=== PATIENT | female | born 1975 | race Caucasian/White ===

== ENCOUNTER 2020-12-13 13:03 | Emergency (ER) | payer OTHER ==
[~2020-12-13] VITALS: Ht 177.8 cm; Wt 90.4 kg
[~2020-12-13 13:03] MED LIST: ALPR2TAB3 PO; CLON0.2T PO; IMIT50TA PO; LEXA1TAB PO; LOPR1TAB6 PO; METO50TA7 PO; PANT40TA29 PO; RANI150T PO; TOPI25CA3 PO; TRAM50TA2 PO; TRAZ-257 PO; ULTR50TA8 PO; VALI5TAB PO
[2020-12-13] MEDS ORDERED: NS 1,000 ML IV ONE (14:50)
[2020-12-13] MEDS ORDERED: KETOROLAC 30 MG/ML 1ML VIAL IV ONE (14:50)
[2020-12-13] MEDS ORDERED: ONDANSETRON 4MG/2ML VIAL IV ONE (14:50)
--- NOTE | 2020-12-13 15:02 | REP ---
INDICATION: Syncope COMPARISON: Correlation with MRI dated 04/11/2013 TECHNIQUE: Axial noncontrast images from the skull base to the vertex with coronal reformations. This CT examination was performed using the following dose reduction techniques: Automated exposure control, adjustment of mA and/or kv according to the patient's size, and use of iterative reconstruction technique. FINDINGS: The ventricles, sulci, and cisterns are normal in position and appearance. Max-white differentiation is maintained. No acute intracranial hemorrhage, mass/mass effect, pathology or trauma/injury. No evidence for acute infarction. No extra-axial fluid collection. Calvarium is intact. Paranasal sinuses and mastoid air cells are clear. IMPRESSION: Normal noncontrast head CT. No evidence for acute intracranial pathology or trauma/injury. <Electronically signed by Kavon Bush > 12/13/20 [id number]
[2020-12-13 15:28] LABS: BASO % 0.3 % (0.0-1.0); EOS # 0.3 10^3/uL (0.0-0.5); EOS % 5.3 % (0.0-3.0); HEMATOCRIT 31.4 % (36.0-47.0); LYMPH # 2.7 10^3/uL (1.5-5.0); LYMPH % 42.7 % (24.0-44.0); MEAN CORPUSCULAR HEMOGLOBIN 30.1 pg (27.0-33.0); MEAN CORPUSCULAR HGB CONC 31.8 g/dl (32.0-36.5); MEAN CORPUSCULAR VOLUME 94.6 fl (80.0-96.0); MONO # 0.4 10^3/uL (0.0-0.8); MONO % 6.4 % (2.0-8.0); NEUTROPHILS # 2.8 10^3/uL (1.5-8.5); NEUTROPHILS % 45.1 % (36.0-66.0); RED BLOOD COUNT 3.32 10^6/uL (4.00-5.40); WHITE BLOOD COUNT 6.3 10^3/uL (4.0-10.0)
[2020-12-13 15:43] LABS: INR 1.41; PARTIAL THROMBOPLASTIN TIME 39.3 SECONDS (24.2-38.5); PROTHROMBIN TIME 17.6 SECONDS (12.5-14.3)
[2020-12-13 15:45] LABS: D-DIMER QUANT 773.19 ng/ml (<500)
[2020-12-13 15:48] LABS: PLATELET COUNT, AUTOMATED 71 10^3/uL (150-450)
[2020-12-13 15:53] LABS: ERYTHROCYTE SEDIMENTATION RATE 45 mm/hr (0-20)
[2020-12-13 16:00] LABS: BLOOD UREA NITROGEN 15 MG/DL (7-18); CARBON DIOXIDE LEVEL 22 MEQ/L (21-32); CHLORIDE LEVEL 111 MEQ/L (98-107); CK-MB VALUE MASS < 1.0 NG/ML (<3.6); CPK CREATINE PHOSPHOKINASE 47 U/L (26-192); CREATININE FOR GFR 1.05 MG/DL (0.55-1.30); FREE T4 1.32 NG/DL (0.76-1.46); GLOMERULAR FILTRATION RATE > 60.0 (>58); GLUCOSE, FASTING 73 MG/DL (70-100); MB/CK RELATIVE INDEX 2.13 (< OR =4); POTASSIUM SERUM 4.1 MEQ/L (3.5-5.1); SODIUM LEVEL 140 MEQ/L (136-145); TROPONIN I < 0.02 NG/ML (< 0.10)
[2020-12-13] MEDS ORDERED: ISOVUE-370 76% 100ML VIAL As Ordered ONE (16:29)
--- NOTE | 2020-12-13 16:57 | REP ---
INDICATION: sob/symptomatic bradycardia COMPARISON: None. TECHNIQUE: Axial contrast enhanced images from the thoracic inlet to the upper abdomen using pulmonary embolus technique with multiplanar re-formations. 75 ml Isovue 370 intravenous contrast material administered without complication. This CT examination was performed using the following dose reduction techniques: Automated exposure control, adjustment of mA and/or kv according to the patient's size, and use of iterative reconstruction technique. FINDINGS: Satisfactory enhancement of the pulmonary vasculature is achieved and no filling defects are identified to suggest pulmonary embolus. Further evaluation of the mediastinum demonstrates normal thoracic aorta, heart and pericardium. The bilateral lung gordon are well aerated and clear without consolidation pleural effusion or pneumothorax. Tracheobronchial tree is patent. No nodule or mass lesion is identified. No adenopathy noted. Surrounding musculoskeletal structures intact IMPRESSION: No evidence for pulmonary embolus. No acute mediastinal or pleural parenchymal process. <Electronically signed by Kavon Bush > 12/13/20 [id number]
[2020-12-13 18:57] LABS: ALBUMIN 2.8 GM/DL (3.2-5.2); BILIRUBIN,DIRECT 0.8 MG/DL (0.0-0.2); BILIRUBIN,TOTAL 1.8 MG/DL (0.2-1.0)
[2020-12-13 19:11] VITALS: BP 135/65
[2020-12-13 22:03] LABS: ETHYL ALCOHOL (ETHANOL) 0.004 % (0.000-0.010)
--- NOTE | 2020-12-14 16:44 | ECGEPIP ---
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
== END 2020-12-13 20:10 | disposition left against medical advice (07) ==
LOC: M ED 13:03
DX: R51.9 Headache, unspecified (principal); R00.1 Bradycardia, unspecified; Z53.21 Procedure and treatment not carried out due to patient leaving prior to being seen by health care provider; G43.909 Migraine, unspecified, not intractable, without status migrainosus; M54.9 Dorsalgia, unspecified; K21.9 Gastro-esophageal reflux disease without esophagitis; F41.9 Anxiety disorder, unspecified; F32.9 Major depressive disorder, single episode, unspecified; F17.200 Nicotine dependence, unspecified, uncomplicated; F12.90 Cannabis use, unspecified, uncomplicated; Z88.1 Allergy status to other antibiotic agents
CPT/HCPCS: 70450; 71275; 80048; 80076; 82077; 82140; 82550; 82553; 83690; 83735; 84439; 84443; 85025; 85049; 85055; 85379; 85610; 85652; 85730; 86140; 93005; 96361; 96374; 96375; 99284; J1885; J2405; Q9967

== ENCOUNTER → 2021-02-19 | Outpatient (CLI) | payer OTHER ==
--- NOTE | 2021-02-19 13:06 | REP ---
INDICATION: EDEMA. COMPARISON: None. TECHNIQUE: Multiple ultrasonographic images of the deep venous structures of the bilateral lower extremity were obtained from the inguinal ligament to the ankle. Venous compression techniques, color doppler imaging, and augmentation techniques were also obtained where appropriate. As per the ACR guidelines the anterior tibial vein can not be effectively evaluated. Only compression techniques in the calf on the peroneal and posterior tibial veins was attempted/performed. FINDINGS: There is no abnormal echogenic material seen within any of the visualized deep venous structures that would suggest acute thrombosis. Coaptation is unremarkable throughout. Doppler interrogation shows an expected response to respiratory variability and augmentation in the thigh. Compression techniques in the calf were unobtainable. The color flow images show what appears to be a normal vascular pattern throughout the thigh. IMPRESSION: There is no ultrasonographic evidence of deep venous thrombosis involving any of the visualized deep venous structures of the bilateral lower extremity as described above. Due to technical parameters calf vein DVT can not be ruled out. <Electronically signed by Aly Gracia > 02/19/21 [id number]
== END ==
LOC: M RAD 11:37
PROVIDERS: ATTEND Nurse Practitioner Family
DX: R60.0 Localized edema (principal)

== ENCOUNTER → 2021-03-12 | Outpatient (CLI) | payer OTHER ==
--- NOTE | 2021-03-12 14:51 | REPMRS ---
Patient History The patient states she has not had a clinical breast exam in over a year. Family history of unknown cancer in father. Baseline @ 45 No breast complaints today Patient signed the MRS sheet 1st covid vaccine 01/05/21-left arm-Pfizer 2nd covid vaccine 01/26/21-left arm Patient Identification Verified Patient denied Digital Woman Screen Mammo: March 12, 2021 - Exam #: [id number] Bilateral CC and MLO view(s) were taken. Technologist: Padmini Mora, Technologist No prior studies available for comparison. FINDINGS: The breast tissue is heterogeneously dense. This may lower the sensitivity of mammography. The Volpara volumetric breast density category is: C. There is a 13 mm well-circumscribed mass in the superomedial quadrant of the right breast. This merits further evaluation. There is no other evidence of dominant mass, architectural distortion, or grouped microcalcification typical of malignancy. 3-D tomosynthesis shows no additional findings. Assessment: BI-RADS/ACR category 0 mammogram, Incomplete. Need additonal imaging evaluation and/or prior mammograms for comparison. Recommendation Ultrasound and special view mammogram of the right breast. This patient's [facility] Lifetime Breast Cancer RIsk is estimated at 9.6 %. This mammogram was interpreted with the aid of an FDA-approved computer-aided dectection system. Electronically Signed By: Shaw Salinas MD 03/12/21 [id number]
== END ==
LOC: M WHC 13:33
PROVIDERS: ATTEND Nurse Practitioner Family
DX: Z12.31 Encounter for screening mammogram for malignant neoplasm of breast (principal); Z80.9 Family history of malignant neoplasm, unspecified; N63.10 Unspecified lump in the right breast, unspecified quadrant

== ENCOUNTER → 2021-03-28 | Outpatient (CLI) | payer OTHER ==
--- NOTE | 2021-03-28 19:30 | ECHO ---
ECHOCARDIOGRAM DATE OF PROCEDURE: 03/28/2021 Age: 45 years Gender: Female Height: 70 inches Weight: 187 pounds Body Surface Area: 2.03 m2. Outpatient REFERRING PHYSICIAN: Val Wakefield INDICATION: Cardiac murmur. MEASUREMENTS: 2D Measurements: RV 3.9 cm LV 5.4 cm Septum 0.9 cm Posterior wall 0.9 cm Aortic Root 3.1 cm LA 3.7 cm LVEF 75% Doppler Measurements: AV 2.61 m/s LVOT 1.16 m/s Mean gradient 13 mmHg Dimensionless index 0.57 MV-E 104, A 95, E/A ratio 1.1 Early mitral deceleration time 280 ms E prime medial 9, A prime medial 10, E prime lateral 12.3 Average E/E prime ratio 9.8/PCWP - 14 mmHg PV 0.96 m/s Pulmonary artery acceleration time 165 ms RVSP 23 mmHg IVC 2.0 cm COMMENTS: Normal sinus rhythm without intraventricular conduction disturbance. M-Mode and Two Dimensional Echocardiography was performed with pulse, continuous wave, color flow, and tissue Doppler studies. Normal left ventricular size, wall thickness, and hyperkinetic wall motion. Normal left atrial size and Doppler assessment of LV diastolic dysfunction and estimated mean left atrial pressure. Normal right heart chamber sizes, wall motion, and estimated pulmonary hypertension. Normal inferior vena cava (IVC) size and collapse against an elevated central venous pressure. Normal aortic dimensions. Normal-appearing aortic valve and aortic valve function. Normal-appearing mitral valve with adequate leaflet excursion and no posterior systolic buckling. No more than very mild mitral insufficiency (physiologic). Normal-appearing tricuspid valve with mild insufficiency. No apparent evidence of intracardiac shunt. No apparent intracardiac mass or pericardial effusion. I suspect this woman's murmur is a physiologic or flow related phenomenon. [facility]
== END ==
LOC: M CARPUL 11:58
PROVIDERS: ATTEND Pediatrics
DX: R01.1 Cardiac murmur, unspecified (principal)

== ENCOUNTER → 2021-12-11 | Outpatient (CLI) | payer OTHER ==
[~2021-12-11] MED LIST changes: -TOPI25CA3 PO; +TOPI25CA5 PO
== END ==
LOC: M WHC 12:37
PROVIDERS: ATTEND Family Medicine
DX: M79.89 Other specified soft tissue disorders (principal); M79.661 Pain in right lower leg

== ENCOUNTER → 2021-12-11 | Outpatient (CLI) | payer OTHER ==
[2021-12-11 10:21] LABS: HEMATOCRIT 30.4 % (36.0-47.0); HEMOGLOBIN 8.7 g/dl (12.0-15.5); MEAN CORPUSCULAR HEMOGLOBIN 22.8 pg (27.0-33.0); MEAN CORPUSCULAR HGB CONC 28.6 g/dl (32.0-36.5); MEAN CORPUSCULAR VOLUME 79.8 fl (80.0-96.0); PLATELET COUNT, AUTOMATED 116 10^3/uL (150-450); RED BLOOD COUNT 3.81 10^6/uL (4.00-5.40); WHITE BLOOD COUNT 5.1 10^3/uL (4.0-10.0)
[2021-12-11 11:10] LABS: ALBUMIN 3.1 GM/DL (3.2-5.2); ALT/SGPT 20 U/L (12-78); BILIRUBIN,TOTAL 1.5 MG/DL (0.2-1.0); BLOOD UREA NITROGEN 10 MG/DL (7-18); CALCIUM LEVEL 9.3 MG/DL (8.5-10.1); CARBON DIOXIDE LEVEL 25 MEQ/L (21-32); CHLORIDE LEVEL 108 MEQ/L (98-107); CHOLESTEROL LEVEL 134 MG/DL (<200); CHOLESTEROL RISK RATIO 1.942 (<5); CREATININE FOR GFR 1.01 MG/DL (0.55-1.30); GLOMERULAR FILTRATION RATE > 60.0 (>58); GLUCOSE, FASTING 101 MG/DL (70-100); HDL CHOLESTEROL 69 MG/DL (>40); LDL CHOLESTEROL 54 MG/DL (<100); NON-HDL-C 65 MG/DL; SODIUM LEVEL 140 MEQ/L (136-145); TOTAL PROTEIN 7.3 GM/DL (6.4-8.2); TRIGLYCERIDES LEVEL 53 MG/DL (<150)
[2021-12-11 11:14] LABS: TOTAL 25(OH) VITAMIN D 22.8 NG/ML (30.0-100.0)
== END ==
LOC: M LAB 09:33
PROVIDERS: ATTEND Family Medicine
DX: I10 Essential (primary) hypertension (principal); R53.83 Other fatigue; E03.9 Hypothyroidism, unspecified

== ENCOUNTER 2022-03-26 19:40 | Emergency (ER) | payer OTHER ==
[~2022-03-26] VITALS: Ht 177.8 cm; Wt 86.4 kg
[2022-03-26 19:49] VITALS: BP 130/79
[2022-03-26] MEDS ORDERED: OMEP-173 (19:50)
== END 2022-03-26 23:32 | disposition left against medical advice (07) ==
LOC: M ED 19:40
DX: Z53.21 Procedure and treatment not carried out due to patient leaving prior to being seen by health care provider (principal)

== ENCOUNTER 2022-04-09 12:43 | Emergency (ER) | payer OTHER ==
[~2022-04-09] VITALS: Ht 177.8 cm; Wt 86.4 kg
[~2022-04-09 12:43] MED LIST changes: +OMEP-173 PO
[2022-04-09 14:06] LABS: BASO # 0.1 10^3/uL (0.0-0.2); BASO % 1.4 % (0.0-1.0); EOS # 0.1 10^3/uL (0.0-0.5); EOS % 1.9 % (0.0-3.0); HEMATOCRIT 31.7 % (36.0-47.0); HEMOGLOBIN 9.5 g/dl (12.0-15.5); LYMPH # 1.7 10^3/uL (1.5-5.0); LYMPH % 40.7 % (24.0-44.0); MEAN CORPUSCULAR HEMOGLOBIN 29.3 pg (27.0-33.0); MEAN CORPUSCULAR VOLUME 97.8 fl (80.0-96.0); MONO # 0.3 10^3/uL (0.0-0.8); MONO % 7.2 % (2.0-8.0); NEUTROPHILS # 1.9 10^3/uL (1.5-8.5); NEUTROPHILS % 46.9 % (36.0-66.0); RED BLOOD COUNT 3.24 10^6/uL (4.00-5.40); WHITE BLOOD COUNT 4.2 10^3/uL (4.0-10.0)
[2022-04-09 14:40] LABS: RSV AMPLIFICATION NEGATIVE (NEGATIVE)
[2022-04-09 14:54] LABS: ACETAMINOPHEN LEVEL < 2.0 UG/ML (10.0-30.0); ALBUMIN 2.9 GM/DL (3.2-5.2); ALT/SGPT 47 U/L (12-78); BILIRUBIN,DIRECT 1.5 MG/DL (0.0-0.2); BILIRUBIN,TOTAL 2.2 MG/DL (0.2-1.0); BLOOD UREA NITROGEN 8 MG/DL (7-18); CALCIUM LEVEL 8.2 MG/DL (8.5-10.1); CARBON DIOXIDE LEVEL 24 MEQ/L (21-32); CHLORIDE LEVEL 111 MEQ/L (98-107); CREATININE FOR GFR 0.63 MG/DL (0.55-1.30); GLOMERULAR FILTRATION RATE > 60.0 (>58); GLUCOSE, FASTING 108 MG/DL (70-100); PERCENT SATURATION 48.9 % (13.2-45.0); POTASSIUM SERUM 3.7 MEQ/L (3.5-5.1); SALICYLATE LEVEL < 1.7 MG/DL (5.0-30.0); SODIUM LEVEL 143 MEQ/L (136-145); THYROID STIMULATING HORMONE 0.724 uIU/ML (0.358-3.740); TOTAL PROTEIN 7.5 GM/DL (6.4-8.2)
[2022-04-09 14:54] LABS: AMPHETAMINES LEVEL URINE NEGATIVE (NEGATIVE); BARBITURATES URINE NEGATIVE (NEGATIVE); BENZODIAZEPINES URINE NEGATIVE (NEGATIVE); CANNABINOIDS URINE NEGATIVE (NEGATIVE); COCAINE METABOLITE URINE NEGATIVE (NEGATIVE); METHADONE URINE NEGATIVE (NEGATIVE); OPIATES URINE NEGATIVE (NEGATIVE); PHENCYCLIDINE URINE NEGATIVE (NEGATIVE)
[2022-04-09] MEDS ORDERED: OXAZEPAM 15MG CAP PO ONE (15:15)
[2022-04-09] MEDS ORDERED: NS 1,000 ML IV ONE (15:15)
[2022-04-09] MEDS ORDERED: ONDANSETRON 4MG 2ML VIAL IV ONE (15:15)
[2022-04-09 15:28] LABS: PLATELET COUNT, AUTOMATED 89 10^3/uL (150-450)
[2022-04-09 15:33] LABS: FOLATE 6.3 NG/ML (>5.4)
[2022-04-09] MEDS ORDERED: POTA1TAB21 PO (20:03)
[2022-04-09] MEDS ORDERED: METO1TAB32 PO (20:03)
[2022-04-09] MEDS ORDERED: ACET1TAB55 PO (20:04)
[2022-04-09] MEDS ORDERED: HOME MED LIST COMPLETE! XX SCH (20:05)
[2022-04-09 20:53] VITALS: BP 138/74
== END 2022-04-09 20:57 | disposition short-term general hospital (02) ==
LOC: EDBD 12:43 → M ED 12:43
DX: F10.120 Alcohol abuse with intoxication, uncomplicated (principal)
CPT/HCPCS: 80048; 80076; 80143; 80307; 82077; 82607; 82728; 82746; 83550; 84443; 85025; 85049; 85055; 87486; 87581; 87631; 87633; 87798; 96361; 96374; 99284; J2405

== ENCOUNTER 2022-04-27 17:15 | Emergency (ER) | payer OTHER ==
[~2022-04-27 17:15] MED LIST changes: +ACET1TAB55 PO; +METO1TAB32 PO; +POTA1TAB21 PO
[2022-04-27 18:03] LABS: BASO # 0.1 10^3/uL (0.0-0.2); BASO % 1.1 % (0.0-1.0); EOS # 0.2 10^3/uL (0.0-0.5); EOS % 3.5 % (0.0-3.0); HEMATOCRIT 29.7 % (36.0-47.0); LYMPH # 2.8 10^3/uL (1.5-5.0); LYMPH % 42.4 % (24.0-44.0); MEAN CORPUSCULAR HEMOGLOBIN 29.3 pg (27.0-33.0); MEAN CORPUSCULAR HGB CONC 30.3 g/dl (32.0-36.5); MEAN CORPUSCULAR VOLUME 96.7 fl (80.0-96.0); MONO # 0.3 10^3/uL (0.0-0.8); MONO % 5.1 % (2.0-8.0); NEUTROPHILS # 3.1 10^3/uL (1.5-8.5); NEUTROPHILS % 46.8 % (36.0-66.0); RED BLOOD COUNT 3.07 10^6/uL (4.00-5.40); WHITE BLOOD COUNT 6.5 10^3/uL (4.0-10.0)
[2022-04-27 18:10] LABS: PLATELET COUNT, AUTOMATED 94 10^3/uL (150-450)
[2022-04-27 18:15] LABS: HCG, SERUM QUALITATIVE NEGATIVE (NEGATIVE)
[2022-04-27 18:29] LABS: ACETAMINOPHEN LEVEL < 2.0 UG/ML (10.0-20.0); ALBUMIN 3.3 G/DL (3.2-5.2); ALT/SGPT 37 U/L (7.0-40); BILIRUBIN,DIRECT 0.8 MG/DL (<0.4); BILIRUBIN,TOTAL 1.4 MG/DL (0.3-1.2); BLOOD UREA NITROGEN 11 MG/DL (9-23); CALCIUM LEVEL 7.6 MG/DL (8.5-10.1); CARBON DIOXIDE LEVEL 21 MMOL/L (20-31); CHLORIDE LEVEL 109 MMOL/L (98-107); CPK CREATINE PHOSPHOKINASE 407 U/L (34-145); CREATININE FOR GFR 0.76 MG/DL (0.55-1.30); GLOMERULAR FILTRATION RATE > 60.0 (>58); GLUCOSE, FASTING 95 MG/DL (60-100); POTASSIUM SERUM 4.3 MMOL/L (3.5-5.1); SODIUM LEVEL 144 MMOL/L (136-145); THYROID STIMULATING HORMONE 0.987 uIU/ML (0.55-4.78); TOTAL PROTEIN 7.3 G/DL (5.7-8.2)
[2022-04-27 18:44] LABS: ETHYL ALCOHOL (ETHANOL) 0.389 % (0.000-0.010); SALICYLATE LEVEL < 3.0 MG/DL (<30)
[2022-04-27 19:11] LABS: AMPHETAMINES LEVEL URINE NEGATIVE (NEGATIVE); BARBITURATES URINE NEGATIVE (NEGATIVE); BENZODIAZEPINES URINE POSITIVE (NEGATIVE); CANNABINOIDS URINE POSITIVE (NEGATIVE); COCAINE METABOLITE URINE NEGATIVE (NEGATIVE); METHADONE URINE NEGATIVE (NEGATIVE); OPIATES URINE NEGATIVE (NEGATIVE); PHENCYCLIDINE URINE NEGATIVE (NEGATIVE)
[2022-04-27] MEDS ORDERED: THIAMINE 100 MG TAB PO SCH (21:00)
[2022-04-27] MEDS ORDERED: LORazepam 2 MG TAB PO PRN (23:10)
[2022-04-28 04:40] LABS: RSV AMPLIFICATION NEGATIVE (NEGATIVE)
[2022-04-28] MEDS ORDERED: ACETAMINOPHEN 500 MG TAB PO ONE (07:45)
[2022-04-28] MEDS ORDERED: IBUPROFEN 400MG TAB PO ONE (07:45)
[2022-04-28] MEDS ORDERED: MULTIVITAMINS/MINERALS THERAP 1 TAB PO SCH (09:00)
[2022-04-28] MEDS ORDERED: FOLIC ACID 1MG TAB PO SCH (09:00)
[2022-04-28 09:04] VITALS: BP 133/70
== END 2022-04-28 09:06 | disposition short-term general hospital (02) ==
LOC: M ED 17:15
DX: F10.129 Alcohol abuse with intoxication, unspecified (principal); R94.31 Abnormal electrocardiogram [ECG] [EKG]; Z79.899 Other long term (current) drug therapy; Z88.1 Allergy status to other antibiotic agents

== ENCOUNTER → 2022-07-11 | Outpatient (CLI) | payer OTHER ==
[~2022-07-11] MED LIST changes: +B-12100010 PO; +FERR325T19 PO; +FOLI1TAB11 PO; +FURO40TA2 PO; +MAGN1TAB26 PO; +RISATAB3 PO; +SENN-52 PO; +THIA100TA PO; +VITMTA PO
[2022-07-11 11:55] LABS: HEMOGLOBIN 9.2 g/dl (12.0-15.5); MEAN CORPUSCULAR HEMOGLOBIN 31.1 pg (27.0-33.0); MEAN CORPUSCULAR HGB CONC 29.7 g/dl (32.0-36.5); MEAN CORPUSCULAR VOLUME 104.7 fl (80.0-96.0); RED BLOOD COUNT 2.96 10^6/uL (4.00-5.40)
[2022-07-11 12:08] LABS: PLATELET COUNT, AUTOMATED 93 10^3/uL (150-450)
[2022-07-11 12:25] LABS: ALBUMIN 2.3 G/DL (3.2-5.2); ALKALINE PHOSPHATASE 97 U/L (46-116); ALT/SGPT 16 U/L (7.0-40); AST/SGOT 56 U/L (<34); BILIRUBIN,TOTAL 1.8 MG/DL (0.3-1.2); BLOOD UREA NITROGEN 8 MG/DL (9-23); CALCIUM LEVEL 8.6 MG/DL (8.5-10.1); CARBON DIOXIDE LEVEL 19 MMOL/L (20-31); CHLORIDE LEVEL 114 MMOL/L (98-107); CHOLESTEROL LEVEL 86 MG/DL (<200); CHOLESTEROL RISK RATIO 3.55 (<5); CREATININE FOR GFR 0.64 MG/DL (0.55-1.30); GLOMERULAR FILTRATION RATE > 60.0 (>58); GLUCOSE, FASTING 90 MG/DL (60-100); HDL CHOLESTEROL 24.2 MG/DL (>40); NON-HDL-C 62 MG/DL; POTASSIUM SERUM 4.1 MMOL/L (3.5-5.1); SODIUM LEVEL 143 MMOL/L (136-145); TOTAL PROTEIN 6.4 G/DL (5.7-8.2); TRIGLYCERIDES LEVEL 74 MG/DL (<150)
[2022-07-11 12:27] LABS: TOTAL 25(OH) VITAMIN D 22.7 NG/ML (20.0-100.0)
== END ==
LOC: M LAB 11:23 → M RAD 11:23
PROVIDERS: ATTEND Family Medicine
DX: I10 Essential (primary) hypertension (principal); J44.9 Chronic obstructive pulmonary disease, unspecified; R53.83 Other fatigue; E03.9 Hypothyroidism, unspecified

== ENCOUNTER 2022-08-15 17:00 | Inpatient (IN) | payer MEDICAID, OTHER ==
[~2022-08-15] VITALS: Ht 177.8 cm; Wt 86.4 kg
[2022-08-15] MEDS ORDERED: LORazepam 2 MG TAB PO PRN (17:35)
[2022-08-15] MEDS ORDERED: ACETAMINOPHEN 500 MG TAB PO ONE (17:50)
[2022-08-15 17:55] LABS: BASO % 0.1 % (0.0-1.0); HEMATOCRIT 32.6 % (36.0-47.0); HEMOGLOBIN 10.2 g/dl (12.0-15.5); LYMPH # 0.6 10^3/uL (1.5-5.0); LYMPH % 7.7 % (24.0-44.0); MEAN CORPUSCULAR HEMOGLOBIN 33.6 pg (27.0-33.0); MEAN CORPUSCULAR HGB CONC 31.3 g/dl (32.0-36.5); MEAN CORPUSCULAR VOLUME 107.2 fl (80.0-96.0); MONO # 0.5 10^3/uL (0.0-0.8); MONO % 5.5 % (2.0-8.0); NEUTROPHILS # 7.1 10^3/uL (1.5-8.5); NEUTROPHILS % 85.7 % (36.0-66.0); RED BLOOD COUNT 3.04 10^6/uL (4.00-5.40); WHITE BLOOD COUNT 8.3 10^3/uL (4.0-10.0)
[2022-08-15 17:57] LABS: PLATELET COUNT, AUTOMATED 59 10^3/uL (150-450)
[2022-08-15] MEDS ORDERED: LORazepam 2 MG/ML 1ML VIAL IV STA (18:08)
[2022-08-15] MEDS ORDERED: NS 1,000 ML IV ONE ×2 (18:20→21:40)
[2022-08-15 18:21] LABS: LIPASE 34 U/L (12-53)
[2022-08-15 18:22] LABS: ETHYL ALCOHOL (ETHANOL) 0.005 % (0.000-0.010)
[2022-08-15 18:23] LABS: SALICYLATE LEVEL < 3.0 MG/DL (<30)
[2022-08-15 18:27] LABS: ALBUMIN 3.1 G/DL (3.2-5.2); ALKALINE PHOSPHATASE 69 U/L (46-116); ALT/SGPT 11 U/L (7.0-40); AST/SGOT 39 U/L (<34); BILIRUBIN,DIRECT 1.2 MG/DL (<0.4); BILIRUBIN,TOTAL 2.8 MG/DL (0.3-1.2); BLOOD UREA NITROGEN 15 MG/DL (9-23); CALCIUM LEVEL 8.6 MG/DL (8.5-10.1); CARBON DIOXIDE LEVEL 22 MMOL/L (20-31); CHLORIDE LEVEL 109 MMOL/L (98-107); CREATININE FOR GFR 0.67 MG/DL (0.55-1.30); GLOMERULAR FILTRATION RATE > 60.0 (>58); GLUCOSE, FASTING 109 MG/DL (60-100); SODIUM LEVEL 141 MMOL/L (136-145); TOTAL PROTEIN 7.2 G/DL (5.7-8.2)
[2022-08-15 18:30] LABS: ACETAMINOPHEN LEVEL 3.9 UG/ML (10.0-20.0)
[2022-08-15 18:56] LABS: PHENCYCLIDINE URINE NEGATIVE (NEGATIVE)
[2022-08-15 18:57] LABS: AMPHETAMINES LEVEL URINE NEGATIVE (NEGATIVE); BARBITURATES URINE NEGATIVE (NEGATIVE); BENZODIAZEPINES URINE NEGATIVE (NEGATIVE); COCAINE METABOLITE URINE NEGATIVE (NEGATIVE); METHADONE URINE NEGATIVE (NEGATIVE); OPIATES URINE NEGATIVE (NEGATIVE)
[2022-08-15 18:58] LABS: CANNABINOIDS URINE POSITIVE (NEGATIVE)
[2022-08-15 19:19] LABS: CPK CREATINE PHOSPHOKINASE 51 U/L (34-145)
[2022-08-15] MEDS ORDERED: IBUPROFEN 800 MG TAB PO ONE (19:25)
[2022-08-15] MEDS ORDERED: THIAMINE 100 MG TAB PO SCH (21:00)
[2022-08-16] MEDS ORDERED: HOME MED LIST COMPLETE! XX SCH (00:55)
[2022-08-16] MEDS ORDERED: MOM 30ML SUSPENSION UDC PO PRN (01:30)
[2022-08-16] MEDS ORDERED: MAALOX 30 ML SUSP *UDC PO PRN (01:30)
[2022-08-16] MEDS ORDERED: FOLIC ACID 1MG TAB PO SCH (09:00)
[2022-08-16] MEDS ORDERED: MULTIVITAMINS/MINERALS THERAP 1 TAB PO SCH (09:00)
[2022-08-16] MEDS: CEFDINIR 300 MG CAP (OMNICEF) PO SCH ×2 (11:54→21:22)
[2022-08-16] MEDS: ACETAMINOPHEN TAB 650MG DOSE (2X325MG) PO PRN ×2 (12:51→18:46)
[2022-08-16] MEDS: VENLAFAXINE **XR** 37.5 MG CAPSULE PO SCH (14:57)
[2022-08-16 18:50] VITALS: BP 143/66
[2022-08-16] MEDS ORDERED: KETOROLAC TROMETHAMINE 10 MG TAB PO ONE (20:00)
[2022-08-16 20:35] VITALS: BP 131/69
[2022-08-16] MEDS: MIRTAZAPINE 7.5MG PER 1/2 TABLET PO SCH (21:22)
[2022-08-17 05:40] VITALS: BP 138/68
[2022-08-17] MEDS: CEFDINIR 300 MG CAP (OMNICEF) PO SCH ×2 (09:53→20:57)
[2022-08-17] MEDS: VENLAFAXINE **XR** 37.5 MG CAPSULE PO SCH (09:53)
[2022-08-17 16:18] VITALS: BP 140/69
[2022-08-17] MEDS: MIRTAZAPINE 7.5MG PER 1/2 TABLET PO SCH (20:57)
[2022-08-18 06:29] VITALS: BP 151/82
[2022-08-18] MEDS: CEFDINIR 300 MG CAP (OMNICEF) PO SCH ×2 (09:18→20:58)
[2022-08-18] MEDS: VENLAFAXINE **XR** 37.5 MG CAPSULE PO SCH (09:18)
[2022-08-18 16:14] VITALS: BP 128/64
[2022-08-18] MEDS: traZODone 50 MG TAB PO PRN (20:58)
[2022-08-18] MEDS: MIRTAZAPINE 15 MG TAB PO SCH (20:58)
[2022-08-18] MEDS: ACETAMINOPHEN TAB 650MG DOSE (2X325MG) PO PRN (20:58)
[2022-08-19 06:42] VITALS: BP 126/59
[2022-08-19] MEDS: VENLAFAXINE **XR** 75MG CAPSULE PO SCH (09:37)
[2022-08-19] MEDS: CEFDINIR 300 MG CAP (OMNICEF) PO SCH ×2 (09:37→22:18)
[2022-08-19 16:11] VITALS: BP 131/60
[2022-08-19] MEDS: ACETAMINOPHEN TAB 650MG DOSE (2X325MG) PO PRN (17:46)
[2022-08-19] MEDS: MIRTAZAPINE 15 MG TAB PO SCH (22:18)
[2022-08-20 06:28] VITALS: BP 150/73
[2022-08-20] MEDS: VENLAFAXINE **XR** 75MG CAPSULE PO SCH (08:53)
[2022-08-20] MEDS: CEFDINIR 300 MG CAP (OMNICEF) PO SCH ×2 (08:53→22:01)
[2022-08-20] MEDS: ACETAMINOPHEN TAB 650MG DOSE (2X325MG) PO PRN (14:55)
[2022-08-20 16:20] VITALS: BP 136/85
[2022-08-20] MEDS: IBUPROFEN 600MG TAB PO PRN (22:00)
[2022-08-20] MEDS: traZODone 50 MG TAB PO PRN (22:01)
[2022-08-20] MEDS: MIRTAZAPINE 15 MG TAB PO SCH (22:01)
[2022-08-21 06:26] VITALS: BP 123/58
[2022-08-21] MEDS: VENLAFAXINE **XR** 75MG CAPSULE PO SCH (09:00)
[2022-08-21] MEDS: IBUPROFEN 600MG TAB PO PRN ×2 (09:02→21:01)
[2022-08-21 19:03] VITALS: BP 144/68
[2022-08-21] MEDS: traZODone 50 MG TAB PO PRN (21:01)
[2022-08-21] MEDS: MIRTAZAPINE 15 MG TAB PO SCH (21:01)
[2022-08-22 06:37] VITALS: BP 137/70
[2022-08-22] MEDS: IBUPROFEN 600MG TAB PO PRN (09:57)
[2022-08-22] MEDS: VENLAFAXINE **XR** 75MG CAPSULE PO SCH (09:57)
[2022-08-22 18:15] VITALS: BP 130/89
[2022-08-22] MEDS: MIRTAZAPINE 15 MG TAB PO SCH (21:46)
[2022-08-22] MEDS: ACETAMINOPHEN TAB 650MG DOSE (2X325MG) PO PRN (21:46)
[2022-08-22] MEDS: traZODone 50 MG TAB PO PRN (21:46)
[2022-08-23 06:53] VITALS: BP 132/61
[2022-08-23] MEDS: VENLAFAXINE **XR** 75MG CAPSULE PO SCH (08:06)
[2022-08-23] MEDS: IBUPROFEN 600MG TAB PO PRN (08:07)
[2022-08-23 16:24] VITALS: BP 144/70
[2022-08-23] MEDS: MIRTAZAPINE 15 MG TAB PO SCH (21:42)
[2022-08-24 06:43] VITALS: BP 153/71
[2022-08-24] MEDS: IBUPROFEN 600MG TAB PO PRN (08:34)
[2022-08-24] MEDS: VENLAFAXINE **XR** 75MG CAPSULE PO SCH (08:34)
[2022-08-24 16:34] VITALS: BP 132/73
[2022-08-24] MEDS: MIRTAZAPINE 15 MG TAB PO SCH (20:17)
[2022-08-24] MEDS: traZODone 50 MG TAB PO PRN (20:18)
[2022-08-25 06:28] VITALS: BP 118/56
[2022-08-25] MEDS: VENLAFAXINE **XR** 75MG CAPSULE PO SCH (08:19)
[2022-08-25] MEDS ORDERED: hydrOXYzine 50 MG TAB PO PRN (09:45)
[2022-08-25] MEDS: ACETAMINOPHEN TAB 650MG DOSE (2X325MG) PO PRN ×2 (14:36→20:36)
[2022-08-25 15:27] VITALS: BP 128/69
[2022-08-25 15:29] VITALS: BP 131/76
[2022-08-25] MEDS: MIRTAZAPINE 15 MG TAB PO SCH (20:33)
[2022-08-25] MEDS: traZODone 50 MG TAB PO PRN (20:34)
[2022-08-26] MEDS: PROPRANOLOL 20 MG TAB PO SCH ×2 (08:57→20:28)
[2022-08-26] MEDS: VENLAFAXINE **XR** 75MG CAPSULE PO SCH (08:57)
[2022-08-26] MEDS: IBUPROFEN 600MG TAB PO PRN (08:59)
[2022-08-26 15:13] VITALS: BP 133/96
[2022-08-26] MEDS: BENZTROPINE 1 MG TAB PO PRN (20:28)
[2022-08-26] MEDS: MIRTAZAPINE 15 MG TAB PO SCH (20:28)
[2022-08-26] MEDS: traZODone 50 MG TAB PO PRN (20:28)
[2022-08-27] MEDS: BENZTROPINE 1 MG TAB PO PRN (06:21)
[2022-08-27 06:38] VITALS: BP 127/78
[2022-08-27] MEDS ORDERED: VENLAFAXINE **XR** 37.5 MG CAPSULE PO SCH (09:00)
[2022-08-27 10:05] VITALS: BP 130/78
[2022-08-27] MEDS: PROPRANOLOL 20 MG TAB PO SCH (10:05)
[2022-08-27 11:36] LABS: BASO % 0.7 % (0.0-1.0); EOS # 0.2 10^3/uL (0.0-0.5); EOS % 3.5 % (0.0-3.0); HEMATOCRIT 30.5 % (36.0-47.0); HEMOGLOBIN 9.7 g/dl (12.0-15.5); LYMPH # 2.1 10^3/uL (1.5-5.0); LYMPH % 36.8 % (24.0-44.0); MEAN CORPUSCULAR HEMOGLOBIN 33.6 pg (27.0-33.0); MEAN CORPUSCULAR HGB CONC 31.8 g/dl (32.0-36.5); MEAN CORPUSCULAR VOLUME 105.5 fl (80.0-96.0); MONO # 0.6 10^3/uL (0.0-0.8); MONO % 9.8 % (2.0-8.0); NEUTROPHILS # 2.8 10^3/uL (1.5-8.5); NEUTROPHILS % 48.8 % (36.0-66.0); PLATELET COUNT, AUTOMATED 107 10^3/uL (150-450); RED BLOOD COUNT 2.89 10^6/uL (4.00-5.40); WHITE BLOOD COUNT 5.7 10^3/uL (4.0-10.0)
[2022-08-27 12:09] LABS: ALBUMIN 2.7 G/DL (3.2-5.2); ALKALINE PHOSPHATASE 78 U/L (46-116); ALT/SGPT 13 U/L (7.0-40); AST/SGOT 32 U/L (<34); BILIRUBIN,TOTAL 1.3 MG/DL (0.3-1.2); BLOOD UREA NITROGEN 26 MG/DL (9-23); CARBON DIOXIDE LEVEL 24 MMOL/L (20-31); CHLORIDE LEVEL 114 MMOL/L (98-107); CREATININE FOR GFR 0.72 MG/DL (0.55-1.30); GLOMERULAR FILTRATION RATE > 60.0 (>58); GLUCOSE, FASTING 101 MG/DL (60-100); POTASSIUM SERUM 4.4 MMOL/L (3.5-5.1); SODIUM LEVEL 146 MMOL/L (136-145); TOTAL PROTEIN 6.4 G/DL (5.7-8.2)
[2022-08-27 13:08] VITALS: BP 128/84
[2022-08-27] MEDS: LACTULOSE 20GM/30ML SYRUP UDC PO SCH ×2 (14:19→17:00)
[2022-08-27] MEDS ORDERED: rifAXIMin 550 MG TAB (XIFAXAN) PO SCH (21:00)
[2022-08-27] MEDS ORDERED: MIRTAZAPINE 7.5MG PER 1/2 TABLET PO SCH (21:00)
== END 2022-08-27 17:29 | disposition other institution (70) | DRG 751 ==
LOC: M ED 17:00 → M ED INP 08-16 01:29 → M PSY 08-16 02:00
PROVIDERS: ADMIT Psychiatry & Neurology Psychiatry; ATTEND Student in an Organized Health Care Education/Training Program
DX: F33.2 Major depressive disorder, recurrent severe without psychotic features (principal); F10.91 Alcohol use, unspecified, in remission; F12.90 Cannabis use, unspecified, uncomplicated; F11.90 Opioid use, unspecified, uncomplicated; G43.909 Migraine, unspecified, not intractable, without status migrainosus; I10 Essential (primary) hypertension; D69.6 Thrombocytopenia, unspecified; D64.9 Anemia, unspecified; M79.661 Pain in right lower leg; M25.552 Pain in left hip; K76.0 Fatty (change of) liver, not elsewhere classified; K21.9 Gastro-esophageal reflux disease without esophagitis; E03.9 Hypothyroidism, unspecified; F17.210 Nicotine dependence, cigarettes, uncomplicated; F43.81 Prolonged grief disorder; Z20.822 Contact with and (suspected) exposure to COVID-19; Z88.1 Allergy status to other antibiotic agents; Z90.49 Acquired absence of other specified parts of digestive tract

== ENCOUNTER 2022-08-27 15:04 | Inpatient (IN) | payer MEDICAID, OTHER ==
[~2022-08-27] VITALS: Ht 177.8 cm; Wt 92.2 kg
[2022-08-27 18:00] VITALS: BP 126/84
[2022-08-27] MEDS ORDERED: HOME MED LIST COMPLETE! XX SCH (18:05)
[2022-08-27] MEDS: LACTULOSE 20GM/30ML SYRUP UDC PO SCH (18:49)
[2022-08-27 19:02] LABS: INR 1.24; PROTHROMBIN TIME 15.9 SECONDS (12.5-14.5)
[2022-08-27 19:03] LABS: PARTIAL THROMBOPLASTIN TIME 34.5 SECONDS (24.8-34.2)
[2022-08-27] MEDS: rifAXIMin 550 MG TAB (XIFAXAN) PO SCH (20:29)
[2022-08-27] MEDS ORDERED: RAMELTEON 8 MG TAB (ROZEREM) PO ONE (20:55)
[2022-08-27 21:51] VITALS: BP 144/54
[2022-08-28] MEDS: LACTULOSE 20GM/30ML SYRUP UDC PO SCH ×5 (00:22→23:51)
[2022-08-28 05:51] VITALS: BP 131/88
[2022-08-28 06:14] LABS: BASO # 0.1 10^3/uL (0.0-0.2); EOS # 0.2 10^3/uL (0.0-0.5); EOS % 3.3 % (0.0-3.0); HEMATOCRIT 29.6 % (36.0-47.0); HEMOGLOBIN 9.3 g/dl (12.0-15.5); LYMPH # 2.5 10^3/uL (1.5-5.0); LYMPH % 40.8 % (24.0-44.0); MEAN CORPUSCULAR HGB CONC 31.4 g/dl (32.0-36.5); MONO # 0.7 10^3/uL (0.0-0.8); MONO % 10.7 % (2.0-8.0); NEUTROPHILS # 2.7 10^3/uL (1.5-8.5); PLATELET COUNT, AUTOMATED 108 10^3/uL (150-450); RED BLOOD COUNT 2.82 10^6/uL (4.00-5.40); WHITE BLOOD COUNT 6.2 10^3/uL (4.0-10.0)
[2022-08-28 06:34] LABS: BLOOD UREA NITROGEN 23 MG/DL (9-23); CALCIUM LEVEL 8.6 MG/DL (8.5-10.1); CARBON DIOXIDE LEVEL 22 MMOL/L (20-31); CHLORIDE LEVEL 114 MMOL/L (98-107); CREATININE FOR GFR 0.65 MG/DL (0.55-1.30); GLOMERULAR FILTRATION RATE > 60.0 (>58); GLUCOSE, FASTING 89 MG/DL (60-100); MAGNESIUM LEVEL 1.7 MG/DL (1.8-2.4); POTASSIUM SERUM 4.4 MMOL/L (3.5-5.1); SODIUM LEVEL 144 MMOL/L (136-145)
[2022-08-28] MEDS ORDERED: UNRESOLVED CLARIFICATION ENTRY XX STA (06:43)
[2022-08-28] MEDS ORDERED: MAG SULF 1GM/100ML (MAG RUN) 1 GM in IV 1 EA IV ONE (08:00)
[2022-08-28] MEDS: rifAXIMin 550 MG TAB (XIFAXAN) PO SCH ×2 (09:24→20:49)
[2022-08-28] MEDS: MAGNESIUM OXIDE 400MG TAB (MAG-OX) PO SCH ×2 (09:25→20:49)
[2022-08-28 14:00] VITALS: BP 130/74
[2022-08-28 21:01] VITALS: BP 106/61
[2022-08-28] MEDS: RAMELTEON 8 MG TAB (ROZEREM) PO PRN (23:51)
[2022-08-29 05:55] LABS: BASO % 0.7 % (0.0-1.0); EOS # 0.2 10^3/uL (0.0-0.5); EOS % 4.2 % (0.0-3.0); HEMATOCRIT 29.7 % (36.0-47.0); HEMOGLOBIN 9.4 g/dl (12.0-15.5); LYMPH # 2.6 10^3/uL (1.5-5.0); LYMPH % 45.9 % (24.0-44.0); MEAN CORPUSCULAR HEMOGLOBIN 33.2 pg (27.0-33.0); MEAN CORPUSCULAR HGB CONC 31.6 g/dl (32.0-36.5); MEAN CORPUSCULAR VOLUME 104.9 fl (80.0-96.0); MONO # 0.6 10^3/uL (0.0-0.8); MONO % 10.9 % (2.0-8.0); NEUTROPHILS # 2.2 10^3/uL (1.5-8.5); NEUTROPHILS % 38.1 % (36.0-66.0); PLATELET COUNT, AUTOMATED 111 10^3/uL (150-450); RED BLOOD COUNT 2.83 10^6/uL (4.00-5.40); WHITE BLOOD COUNT 5.7 10^3/uL (4.0-10.0)
[2022-08-29] MEDS: LACTULOSE 20GM/30ML SYRUP UDC PO SCH ×3 (06:18→18:25)
[2022-08-29 06:20] VITALS: BP 109/67
[2022-08-29 06:30] LABS: BLOOD UREA NITROGEN 22 MG/DL (9-23); CALCIUM LEVEL 8.9 MG/DL (8.5-10.1); CARBON DIOXIDE LEVEL 22 MMOL/L (20-31); CHLORIDE LEVEL 114 MMOL/L (98-107); CREATININE FOR GFR 0.61 MG/DL (0.55-1.30); GLOMERULAR FILTRATION RATE > 60.0 (>58); GLUCOSE, FASTING 84 MG/DL (60-100); MAGNESIUM LEVEL 1.9 MG/DL (1.8-2.4); POTASSIUM SERUM 4.1 MMOL/L (3.5-5.1); SODIUM LEVEL 143 MMOL/L (136-145)
[2022-08-29] MEDS: rifAXIMin 550 MG TAB (XIFAXAN) PO SCH ×2 (08:40→20:21)
[2022-08-29] MEDS: MAGNESIUM OXIDE 400MG TAB (MAG-OX) PO SCH ×2 (08:41→20:21)
[2022-08-29 14:30] VITALS: BP 109/55
[2022-08-29] MEDS: RAMELTEON 8 MG TAB (ROZEREM) PO PRN (20:20)
[2022-08-29 21:36] VITALS: BP 109/53
[2022-08-29] MEDS: LIDOCAINE 5% (LIDODERM) PATCH TD SCH (22:04)
[2022-08-30] MEDS: IBUPROFEN 800 MG TAB PO PRN ×2 (00:15→17:24)
[2022-08-30] MEDS: LACTULOSE 20GM/30ML SYRUP UDC PO SCH ×5 (00:15→23:39)
[2022-08-30 06:00] VITALS: BP 128/66
[2022-08-30 07:33] LABS: BASO % 0.8 % (0.0-1.0); EOS # 0.2 10^3/uL (0.0-0.5); EOS % 3.1 % (0.0-3.0); HEMATOCRIT 29.5 % (36.0-47.0); HEMOGLOBIN 9.3 g/dl (12.0-15.5); LYMPH # 2.2 10^3/uL (1.5-5.0); LYMPH % 44.5 % (24.0-44.0); MEAN CORPUSCULAR HEMOGLOBIN 33.1 pg (27.0-33.0); MEAN CORPUSCULAR HGB CONC 31.5 g/dl (32.0-36.5); MONO # 0.5 10^3/uL (0.0-0.8); NEUTROPHILS % 41.4 % (36.0-66.0); PLATELET COUNT, AUTOMATED 100 10^3/uL (150-450); RED BLOOD COUNT 2.81 10^6/uL (4.00-5.40); WHITE BLOOD COUNT 4.9 10^3/uL (4.0-10.0)
[2022-08-30 07:59] LABS: BLOOD UREA NITROGEN 22 MG/DL (9-23); CALCIUM LEVEL 8.8 MG/DL (8.5-10.1); CARBON DIOXIDE LEVEL 23 MMOL/L (20-31); CHLORIDE LEVEL 114 MMOL/L (98-107); CREATININE FOR GFR 0.73 MG/DL (0.55-1.30); GLOMERULAR FILTRATION RATE > 60.0 (>58); GLUCOSE, FASTING 85 MG/DL (60-100); MAGNESIUM LEVEL 1.9 MG/DL (1.8-2.4); POTASSIUM SERUM 4.7 MMOL/L (3.5-5.1); SODIUM LEVEL 143 MMOL/L (136-145)
[2022-08-30] MEDS: rifAXIMin 550 MG TAB (XIFAXAN) PO SCH ×2 (09:48→21:15)
[2022-08-30] MEDS: MAGNESIUM OXIDE 400MG TAB (MAG-OX) PO SCH ×2 (09:48→21:15)
[2022-08-30] MEDS: SENOKOT S TAB PO SCH ×2 (13:03→21:15)
[2022-08-30 14:00] VITALS: BP 126/66
[2022-08-30] MEDS: RAMELTEON 8 MG TAB (ROZEREM) PO PRN (21:15)
[2022-08-30] MEDS: LIDOCAINE 5% (LIDODERM) PATCH TD SCH (21:15)
[2022-08-30 22:00] VITALS: BP 107/55
[2022-08-31] MEDS: LACTULOSE 20GM/30ML SYRUP UDC PO SCH ×3 (05:30→17:33)
[2022-08-31 06:00] VITALS: BP 129/66
[2022-08-31 06:21] LABS: BASO # 0.1 10^3/uL (0.0-0.2); EOS # 0.2 10^3/uL (0.0-0.5); EOS % 3.1 % (0.0-3.0); HEMATOCRIT 29.3 % (36.0-47.0); HEMOGLOBIN 9.4 g/dl (12.0-15.5); LYMPH # 2.2 10^3/uL (1.5-5.0); LYMPH % 44.4 % (24.0-44.0); MEAN CORPUSCULAR HEMOGLOBIN 33.7 pg (27.0-33.0); MEAN CORPUSCULAR HGB CONC 32.1 g/dl (32.0-36.5); MONO # 0.3 10^3/uL (0.0-0.8); NEUTROPHILS # 2.1 10^3/uL (1.5-8.5); NEUTROPHILS % 44.3 % (36.0-66.0); PLATELET COUNT, AUTOMATED 100 10^3/uL (150-450); RED BLOOD COUNT 2.79 10^6/uL (4.00-5.40); WHITE BLOOD COUNT 4.8 10^3/uL (4.0-10.0)
[2022-08-31 07:03] LABS: BLOOD UREA NITROGEN 20 MG/DL (9-23); CALCIUM LEVEL 8.8 MG/DL (8.5-10.1); CARBON DIOXIDE LEVEL 22 MMOL/L (20-31); CHLORIDE LEVEL 114 MMOL/L (98-107); CREATININE FOR GFR 0.62 MG/DL (0.55-1.30); GLOMERULAR FILTRATION RATE > 60.0 (>58); GLUCOSE, FASTING 89 MG/DL (60-100); MAGNESIUM LEVEL 1.7 MG/DL (1.8-2.4); SODIUM LEVEL 144 MMOL/L (136-145)
[2022-08-31] MEDS ORDERED: MAG SULF 1GM/100ML (MAG RUN) 1 GM in IV 1 EA IV ONE (08:00)
[2022-08-31] MEDS: MAGNESIUM OXIDE 400MG TAB (MAG-OX) PO SCH ×2 (08:14→21:49)
[2022-08-31] MEDS: rifAXIMin 550 MG TAB (XIFAXAN) PO SCH ×2 (08:14→21:49)
[2022-08-31] MEDS: SENOKOT S TAB PO SCH ×2 (08:14→21:00)
[2022-08-31] MEDS: IBUPROFEN 800 MG TAB PO PRN (16:51)
[2022-08-31] MEDS: RAMELTEON 8 MG TAB (ROZEREM) PO PRN (21:49)
[2022-08-31] MEDS: LIDOCAINE 5% (LIDODERM) PATCH TD SCH (21:50)
[2022-09-01] MEDS: LACTULOSE 20GM/30ML SYRUP UDC PO SCH ×3 (05:39→12:37)
[2022-09-01 06:00] VITALS: BP 120/64
[2022-09-01 06:15] LABS: BASO # 0.1 10^3/uL (0.0-0.2); EOS # 0.2 10^3/uL (0.0-0.5); EOS % 3.3 % (0.0-3.0); HEMATOCRIT 29.8 % (36.0-47.0); HEMOGLOBIN 9.5 g/dl (12.0-15.5); LYMPH % 41.8 % (24.0-44.0); MEAN CORPUSCULAR HEMOGLOBIN 33.1 pg (27.0-33.0); MEAN CORPUSCULAR HGB CONC 31.9 g/dl (32.0-36.5); MEAN CORPUSCULAR VOLUME 103.8 fl (80.0-96.0); MONO # 0.4 10^3/uL (0.0-0.8); MONO % 8.2 % (2.0-8.0); NEUTROPHILS # 2.2 10^3/uL (1.5-8.5); NEUTROPHILS % 45.5 % (36.0-66.0); RED BLOOD COUNT 2.87 10^6/uL (4.00-5.40); WHITE BLOOD COUNT 4.8 10^3/uL (4.0-10.0)
[2022-09-01 06:19] LABS: PLATELET COUNT, AUTOMATED 87 10^3/uL (150-450)
[2022-09-01 06:46] LABS: BLOOD UREA NITROGEN 21 MG/DL (9-23); CALCIUM LEVEL 8.5 MG/DL (8.5-10.1); CARBON DIOXIDE LEVEL 21 MMOL/L (20-31); CHLORIDE LEVEL 114 MMOL/L (98-107); CREATININE FOR GFR 0.57 MG/DL (0.55-1.30); GLOMERULAR FILTRATION RATE > 60.0 (>58); GLUCOSE, FASTING 84 MG/DL (60-100); MAGNESIUM LEVEL 1.6 MG/DL (1.8-2.4); POTASSIUM SERUM 4.2 MMOL/L (3.5-5.1); SODIUM LEVEL 144 MMOL/L (136-145)
[2022-09-01] MEDS ORDERED: MAGNESIUM OXIDE 400MG TAB (MAG-OX) PO SCH (09:00)
[2022-09-01] MEDS: SENOKOT S TAB PO SCH (09:00)
[2022-09-01] MEDS ORDERED: IBUPROFEN 800 MG TAB PO PRN (09:15)
[2022-09-01] MEDS ORDERED: LACT20EL PO (09:22)
[2022-09-01] MEDS ORDERED: COLA100C5 PO (09:22)
[2022-09-01] MEDS ORDERED: MAGN400T2 PO (09:22)
[2022-09-01] MEDS ORDERED: XIFA550T PO (09:22)
[2022-09-01] MEDS ORDERED: SENN8.6T58 PO (09:22)
[2022-09-01] MEDS ORDERED: FOLI1TAB11 PO (09:22)
[2022-09-01] MEDS ORDERED: THIA100T7 PO (09:22)
[2022-09-01] MEDS: rifAXIMin 550 MG TAB (XIFAXAN) PO SCH (09:30)
[2022-09-01] MEDS ORDERED: VENLAFAXINE **XR** 37.5 MG CAPSULE PO SCH (09:30)
[2022-09-01] MEDS ORDERED: VENL37.598 PO (11:02)
[2022-09-01] MEDS ORDERED: LIDO5DIS41 TOP (18:12)
== END 2022-09-01 14:15 | disposition home or self-care (01) | DRG 279 ==
LOC: M MS5PR 17:30
PROVIDERS: ADMIT Internal Medicine Nephrology; ATTEND Internal Medicine Nephrology
DX: K72.90 Hepatic failure, unspecified without coma (principal); D69.6 Thrombocytopenia, unspecified; K76.6 Portal hypertension; E83.42 Hypomagnesemia; F33.1 Major depressive disorder, recurrent, moderate; F32.A Depression, unspecified; G43.909 Migraine, unspecified, not intractable, without status migrainosus; I10 Essential (primary) hypertension; D53.9 Nutritional anemia, unspecified; F17.200 Nicotine dependence, unspecified, uncomplicated; K21.9 Gastro-esophageal reflux disease without esophagitis; K25.9 Gastric ulcer, unspecified as acute or chronic, without hemorrhage or perforation; E03.9 Hypothyroidism, unspecified; D35.00 Benign neoplasm of unspecified adrenal gland; Z90.49 Acquired absence of other specified parts of digestive tract; Z88.1 Allergy status to other antibiotic agents; F10.20 Alcohol dependence, uncomplicated; Z59.00 Homelessness unspecified; K70.30 Alcoholic cirrhosis of liver without ascites; K76.0 Fatty (change of) liver, not elsewhere classified

== ENCOUNTER → 2022-09-16 | Outpatient (REF) | payer OTHER ==
[~2022-09-16] MED LIST changes: +COLA100C5 PO; +LACT20EL PO; +LIDO5DIS41 TOP; +MAGN400T2 PO; +SENN8.6T58 PO; +THIA100T7 PO; +VENL37.598 PO; +XIFA550T PO
[2022-09-16 17:24] LABS: BASO # 0.1 10^3/uL (0.0-0.2); BASO % 0.9 % (0.0-1.0); EOS # 0.3 10^3/uL (0.0-0.5); EOS % 4.5 % (0.0-3.0); HEMATOCRIT 30.1 % (36.0-47.0); HEMOGLOBIN 9.3 g/dl (12.0-15.5); LYMPH # 1.8 10^3/uL (1.5-5.0); LYMPH % 31.9 % (24.0-44.0); MEAN CORPUSCULAR HEMOGLOBIN 31.7 pg (27.0-33.0); MEAN CORPUSCULAR HGB CONC 30.9 g/dl (32.0-36.5); MEAN CORPUSCULAR VOLUME 102.7 fl (80.0-96.0); MONO # 0.5 10^3/uL (0.0-0.8); MONO % 8.7 % (2.0-8.0); NEUTROPHILS # 3.1 10^3/uL (1.5-8.5); NEUTROPHILS % 53.8 % (36.0-66.0); RED BLOOD COUNT 2.93 10^6/uL (4.00-5.40); WHITE BLOOD COUNT 5.7 10^3/uL (4.0-10.0)
[2022-09-16 17:26] LABS: PLATELET COUNT, AUTOMATED 79 10^3/uL (150-450)
[2022-09-16 17:41] LABS: THYROID STIMULATING HORMONE 1.283 uIU/ML (0.55-4.78)
[2022-09-16 17:42] LABS: ALKALINE PHOSPHATASE 84 U/L (46-116); ALT/SGPT < 9 U/L (7.0-40); AST/SGOT 33 U/L (<34); BILIRUBIN,TOTAL 1.7 MG/DL (0.3-1.2); BLOOD UREA NITROGEN 11 MG/DL (9-23); CALCIUM LEVEL 8.6 MG/DL (8.5-10.1); CARBON DIOXIDE LEVEL 24 MMOL/L (20-31); CHLORIDE LEVEL 110 MMOL/L (98-107); CREATININE FOR GFR 0.64 MG/DL (0.55-1.30); GLOMERULAR FILTRATION RATE > 60.0 (>58); GLUCOSE, FASTING 65 MG/DL (60-100); MAGNESIUM LEVEL 1.6 MG/DL (1.8-2.4); POTASSIUM SERUM 4.1 MMOL/L (3.5-5.1); SODIUM LEVEL 142 MMOL/L (136-145); TOTAL PROTEIN 6.6 G/DL (5.7-8.2)
== END ==
LOC: M LAB REF 16:34
PROVIDERS: ATTEND Pediatrics
DX: K76.82 Hepatic encephalopathy (principal); K70.0 Alcoholic fatty liver

== ENCOUNTER → 2022-10-24 | Outpatient (REF) | payer OTHER ==
[2022-10-24 18:01] LABS: EOS # 0.2 10^3/uL (0.0-0.5); EOS % 5.9 % (0.0-3.0); HEMATOCRIT 27.2 % (36.0-47.0); HEMOGLOBIN 8.2 g/dl (12.0-15.5); LYMPH # 1.5 10^3/uL (1.5-5.0); LYMPH % 37.1 % (24.0-44.0); MEAN CORPUSCULAR HEMOGLOBIN 28.5 pg (27.0-33.0); MEAN CORPUSCULAR HGB CONC 30.1 g/dl (32.0-36.5); MEAN CORPUSCULAR VOLUME 94.4 fl (80.0-96.0); MONO # 0.3 10^3/uL (0.0-0.8); MONO % 6.4 % (2.0-8.0); NEUTROPHILS % 49.1 % (36.0-66.0); RED BLOOD COUNT 2.88 10^6/uL (4.00-5.40); WHITE BLOOD COUNT 4.1 10^3/uL (4.0-10.0)
[2022-10-24 18:14] LABS: PLATELET COUNT, AUTOMATED 99 10^3/uL (150-450)
[2022-10-24 18:24] LABS: MAGNESIUM LEVEL 1.5 MG/DL (1.8-2.4)
== END ==
LOC: M LAB REF 16:17
PROVIDERS: ATTEND Pediatrics
DX: G62.9 Polyneuropathy, unspecified (principal); E83.42 Hypomagnesemia; D64.9 Anemia, unspecified

== ENCOUNTER → 2022-11-07 | Outpatient (REF) | payer OTHER ==
[2022-11-07 17:10] LABS: BASO % 0.5 % (0.0-1.0); EOS # 0.1 10^3/uL (0.0-0.5); EOS % 2.8 % (0.0-3.0); HEMATOCRIT 27.7 % (36.0-47.0); HEMOGLOBIN 8.2 g/dl (12.0-15.5); LYMPH # 0.9 10^3/uL (1.5-5.0); LYMPH % 21.8 % (24.0-44.0); MEAN CORPUSCULAR HEMOGLOBIN 26.3 pg (27.0-33.0); MEAN CORPUSCULAR HGB CONC 29.6 g/dl (32.0-36.5); MEAN CORPUSCULAR VOLUME 88.8 fl (80.0-96.0); MONO # 0.3 10^3/uL (0.0-0.8); MONO % 8.4 % (2.0-8.0); NEUTROPHILS # 2.6 10^3/uL (1.5-8.5); NEUTROPHILS % 65.7 % (36.0-66.0); RED BLOOD COUNT 3.12 10^6/uL (4.00-5.40)
[2022-11-07 17:21] LABS: PLATELET COUNT, AUTOMATED 53 10^3/uL (150-450)
== END ==
LOC: M LAB REF 16:25
PROVIDERS: ATTEND Pediatrics
DX: D64.9 Anemia, unspecified (principal)

== ENCOUNTER → 2022-11-19 | Outpatient (REF) | payer OTHER ==
[~2022-11-19] MED LIST changes: +B-1100TA2 PO; +DOCU100C16 PO; +LEVO1TAB40 PO; +MAGN400T35 PO; +NYST-38 PO; +OMEP40CA4 PO; +VALA500T5 PO
[2022-11-19 17:57] LABS: BLOOD UREA NITROGEN 9 MG/DL (9-23); CALCIUM LEVEL 7.6 MG/DL (8.5-10.1); CARBON DIOXIDE LEVEL 22 MMOL/L (20-31); CHLORIDE LEVEL 112 MMOL/L (98-107); CREATININE FOR GFR 0.79 MG/DL (0.55-1.30); GLOMERULAR FILTRATION RATE > 60.0 (>58); GLUCOSE, FASTING 96 MG/DL (60-100); MAGNESIUM LEVEL 1.8 MG/DL (1.8-2.4); POTASSIUM SERUM 3.8 MMOL/L (3.5-5.1); SODIUM LEVEL 138 MMOL/L (136-145)
== END ==
LOC: M LAB REF 16:23
PROVIDERS: ATTEND Pediatrics
DX: E87.6 Hypokalemia (principal)

== ENCOUNTER 2023-01-27 06:54 | Emergency (ER) | payer OTHER ==
[2023-01-27] MEDS ORDERED: HYDR-3363 PO (07:23)
[2023-01-27 07:24] VITALS: BP 144/74; TEMP 97.2; O2SAT 96
== END 2023-01-27 09:45 | disposition left against medical advice (07) ==
LOC: M ED 06:54
DX: F10.10 Alcohol abuse, uncomplicated (principal); Z53.9 Procedure and treatment not carried out, unspecified reason; I50.9 Heart failure, unspecified; F32.A Depression, unspecified; F17.200 Nicotine dependence, unspecified, uncomplicated; Z79.899 Other long term (current) drug therapy; Z88.1 Allergy status to other antibiotic agents; Z88.8 Allergy status to other drugs, medicaments and biological substances

== ENCOUNTER 2023-05-03 10:58 | Emergency (ER) | payer OTHER ==
[~2023-05-03] VITALS: Ht 177.8 cm; Wt 106.7 kg
[~2023-05-03 10:58] MED LIST changes: +HYDR-3363 PO
[2023-05-03 11:31] LABS: VENOUS HCO3 19.8 MMOL/L (23.0-27.0); VENOUS O2 SATURATION 87.9 % (60.0-80.0); VENOUS PARTIAL PRESSURE CO2 31.3 mmHg (38.0-50.0); VENOUS PH 7.419 UNITS (7.330-7.430); VENOUS TOTAL CO2 20.8 MMOL/L (24.0-28.0)
[2023-05-03] MEDS ORDERED: LEVO1TAB40 (11:31)
[2023-05-03 11:39] LABS: HEMATOCRIT 28.5 % (36.0-47.0); HEMOGLOBIN 8.7 g/dl (12.0-15.5); MEAN CORPUSCULAR HEMOGLOBIN 26.7 pg (27.0-33.0); MEAN CORPUSCULAR HGB CONC 30.5 g/dl (32.0-36.5); MEAN CORPUSCULAR VOLUME 87.4 fl (80.0-96.0); RED BLOOD COUNT 3.26 10^6/uL (4.00-5.40)
[2023-05-03 11:58] LABS: PLATELET COUNT, AUTOMATED 17 10^3/uL (150-450)
[2023-05-03 12:03] LABS: ETHYL ALCOHOL (ETHANOL) 0.093 % (0.000-0.010)
[2023-05-03 12:04] LABS: SALICYLATE LEVEL < 3.0 MG/DL (<30)
[2023-05-03 12:07] LABS: THYROID STIMULATING HORMONE 0.714 uIU/ML (0.55-4.78)
[2023-05-03 12:12] LABS: ANISOCYTOSIS 2+; ATYPICAL LYMPH 1 % (0-5); BASOPHILS 1 % (0-1); EOSINOPHILS 1 % (0-3); HYPOCHROMASIA 1+; LYMPHOCYTES 13 % (16-44); MONOCYTES 8 % (0-5); NEUTROPHILS 65 % (28-66); PLATELET CLUMPS SMALL AMT; PLATELET ESTIMATE MARKED DECREASE (NORMAL); POIKILOCYTOSIS 1+; POLYCHROMASIA 1+
[2023-05-03] MEDS ORDERED: PIPERACILLIN/TAZOBACTAM SOD 4.5 GM in D5W MINI-BAG PLUS 50 ML IV ONE (12:15)
[2023-05-03] MEDS ORDERED: OCTREOTIDE ACETATE 100MCG/ML VIAL **IV ADMINISTRATION ONLY IV ONE (12:15)
[2023-05-03] MEDS ORDERED: NS 1,000 ML IV ONE (12:15)
[2023-05-03] MEDS ORDERED: PANTOPRAZOLE 40MG VIAL IV ONE (12:15)
[2023-05-03 12:17] LABS: AMPHETAMINES LEVEL URINE NEGATIVE (NEGATIVE); BARBITURATES URINE NEGATIVE (NEGATIVE); BENZODIAZEPINES URINE NEGATIVE (NEGATIVE); COCAINE METABOLITE URINE NEGATIVE (NEGATIVE)
[2023-05-03 12:18] LABS: METHADONE URINE NEGATIVE (NEGATIVE); OPIATES URINE NEGATIVE (NEGATIVE); PHENCYCLIDINE URINE NEGATIVE (NEGATIVE)
[2023-05-03 12:24] LABS: ALBUMIN 2.9 G/DL (3.2-5.2); ALKALINE PHOSPHATASE 126 U/L (46-116); ALT/SGPT 20 U/L (7.0-40); AST/SGOT 153 U/L (<34); BILIRUBIN,DIRECT 1.6 MG/DL (<0.4); BILIRUBIN,TOTAL 2.8 MG/DL (0.3-1.2); BLOOD UREA NITROGEN 17 MG/DL (9-23); CALCIUM LEVEL 7.6 MG/DL (8.5-10.1); CANNABINOIDS URINE POSITIVE (NEGATIVE); CARBON DIOXIDE LEVEL 18 MMOL/L (20-31); CHLORIDE LEVEL 110 MMOL/L (98-107); CK-MB VALUE MASS 4.2 NG/ML (<3.6); CPK CREATINE PHOSPHOKINASE 1241 U/L (34-145); GLOMERULAR FILTRATION RATE > 60.0 (>58); GLUCOSE, FASTING 99 MG/DL (60-100); MB/CK RELATIVE INDEX 0.33 (< OR =4); POTASSIUM SERUM 4.8 MMOL/L (3.5-5.1); SODIUM LEVEL 147 MMOL/L (136-145); TOTAL PROTEIN 7.6 G/DL (5.7-8.2)
[2023-05-03 12:28] LABS: OSMOLALITY SERUM 335 MOSM/KG (275-295)
[2023-05-03 13:37] LABS: INR 1.85; PROTHROMBIN TIME 20.7 SECONDS (12.5-14.5)
[2023-05-03 13:38] LABS: PARTIAL THROMBOPLASTIN TIME 40.2 SECONDS (24.8-34.2)
[2023-05-03 13:48] LABS: MB/CK RELATIVE INDEX 0.32 (< OR =4)
[2023-05-03] MEDS ORDERED: ISOVUE-370 76% 100ML VIAL As Ordered ONE (13:51)
[2023-05-03] MEDS ORDERED: ACETAMINOPHEN *IV* 500 MG in IV 1 EA IV ONE (14:00)
[2023-05-03] MEDS ORDERED: OCTREOTIDE ACETATE 1,200 MCG in NS 238.8 ML IV SCH (14:00)
[2023-05-03 14:47] VITALS: TEMP 100.3
[2023-05-03 15:00] VITALS: BP 134/68; O2SAT 94
== END 2023-05-03 15:23 | disposition short-term general hospital (02) ==
LOC: EDBD 10:58 → M ED 10:58
DX: K92.2 Gastrointestinal hemorrhage, unspecified (principal); N39.0 Urinary tract infection, site not specified; R00.0 Tachycardia, unspecified; I10 Essential (primary) hypertension; C22.0 Liver cell carcinoma; F17.200 Nicotine dependence, unspecified, uncomplicated; F10.10 Alcohol abuse, uncomplicated; Z86.79 Personal history of other diseases of the circulatory system; Z88.1 Allergy status to other antibiotic agents; Z88.8 Allergy status to other drugs, medicaments and biological substances; Z79.83 Long term (current) use of bisphosphonates; Z79.899 Other long term (current) drug therapy
CPT/HCPCS: 70450; 71045; 74177; 80048; 80076; 80143; 80307; 81001; 82077; 82140; 82550; 82553; 82803; 83605; 83930; 84443; 85025; 85049; 85055; 85610; 85730; 87040; 87088; 87186; 87486; 87581; 87633; 87798; 93005; 93041; 94760; 96365; 96366; 96375; 99285; C9113; J0131; J2354; J2543; Q9967

== ENCOUNTER → 2023-05-20 | Outpatient (REF) ==
[~2023-05-20] MED LIST changes: +LEVO1TAB40
== END ==
LOC: M PLAIMG 10:14
PROVIDERS: ATTEND Internal Medicine
DX: R52 Pain, unspecified (principal)

== ENCOUNTER 2023-10-02 21:36 | Emergency (ER) | payer MEDICAID, OTHER, SELFPAY ==
[~2023-10-02] VITALS: Ht 177.8 cm; Wt 106.8 kg
[2023-10-02 22:42] LABS: HEMATOCRIT 34.3 % (36.0-47.0); HEMOGLOBIN 11.2 g/dl (12.0-15.5); MEAN CORPUSCULAR HGB CONC 32.7 g/dl (32.0-36.5); RED BLOOD COUNT 3.61 10^6/uL (4.00-5.40); WHITE BLOOD COUNT 6.6 10^3/uL (4.0-10.0)
[2023-10-02 22:59] LABS: PLATELET COUNT, AUTOMATED 94 10^3/uL (150-450)
[2023-10-02 23:05] LABS: SALICYLATE LEVEL < 3.0 MG/DL (<30)
[2023-10-02 23:06] LABS: ALBUMIN 2.9 G/DL (3.2-5.2); ALKALINE PHOSPHATASE 154 U/L (46-116); ALT/SGPT 14 U/L (7.0-40); AST/SGOT 57 U/L (<34); BILIRUBIN,DIRECT 0.9 MG/DL (<0.4); BILIRUBIN,TOTAL 1.6 MG/DL (0.3-1.2); BLOOD UREA NITROGEN 8 MG/DL (9-23); CALCIUM LEVEL 8.5 MG/DL (8.5-10.1); CARBON DIOXIDE LEVEL 25 MMOL/L (20-31); CHLORIDE LEVEL 110 MMOL/L (98-107); CREATININE FOR GFR 0.71 MG/DL (0.55-1.30); GLOMERULAR FILTRATION RATE > 60.0 (>58); GLUCOSE, FASTING 81 MG/DL (60-100); POTASSIUM SERUM 3.6 MMOL/L (3.5-5.1); SODIUM LEVEL 143 MMOL/L (136-145); TOTAL PROTEIN 7.9 G/DL (5.7-8.2)
[2023-10-02 23:09] LABS: THYROID STIMULATING HORMONE 0.573 uIU/ML (0.55-4.78)
[2023-10-02] MEDS: THIAMINE 100 MG TAB PO SCH (23:25)
[2023-10-02 23:39] LABS: ETHYL ALCOHOL (ETHANOL) 0.387 % (0.000-0.010)
[2023-10-03] MEDS ORDERED: AMBI10TA PO (00:13)
[2023-10-03 01:54] LABS: AMPHETAMINES LEVEL URINE NEGATIVE (NEGATIVE); BARBITURATES URINE NEGATIVE (NEGATIVE); BENZODIAZEPINES URINE NEGATIVE (NEGATIVE); COCAINE METABOLITE URINE NEGATIVE (NEGATIVE); METHADONE URINE NEGATIVE (NEGATIVE); OPIATES URINE NEGATIVE (NEGATIVE)
[2023-10-03 01:55] LABS: PHENCYCLIDINE URINE NEGATIVE (NEGATIVE)
[2023-10-03 02:33] LABS: CANNABINOIDS URINE POSITIVE (NEGATIVE)
[2023-10-03] MEDS ORDERED: MED REC CURRENTLY UNOBTAINABLE XX SCH (05:45)
[2023-10-03 08:33] VITALS: TEMP 98.1
[2023-10-03] MEDS: FOLIC ACID 1MG TAB PO SCH (08:50)
[2023-10-03] MEDS: MULTIVITAMINS/MINERALS THERAP 1 TAB PO SCH (08:50)
[2023-10-03] MEDS: ACETAMINOPHEN TAB 650MG DOSE (2X325MG) PO ONE (08:50)
[2023-10-03] MEDS: LORazepam 2 MG TAB PO PRN (08:51)
[2023-10-03] MEDS ORDERED: MULT-40 PO (09:45)
[2023-10-03] MEDS ORDERED: MAGN400T2 PO (09:45)
[2023-10-03] MEDS ORDERED: DULO30CA9 PO (09:45)
[2023-10-03] MEDS ORDERED: HOME MED LIST COMPLETE! XX SCH (09:50)
[2023-10-03 10:30] VITALS: BP 118/58; O2SAT 98
== END 2023-10-03 11:20 | disposition home or self-care (01) ==
LOC: M ED 21:36
DX: F10.129 Alcohol abuse with intoxication, unspecified (principal); F43.29 Adjustment disorder with other symptoms; I50.20 Unspecified systolic (congestive) heart failure; Z88.1 Allergy status to other antibiotic agents; Z88.8 Allergy status to other drugs, medicaments and biological substances; Z79.82 Long term (current) use of aspirin; Z79.811 Long term (current) use of aromatase inhibitors; Z79.899 Other long term (current) drug therapy

== ENCOUNTER 2023-11-26 17:27 | Inpatient (IN) | payer OTHER, SELFPAY ==
[~2023-11-26] VITALS: Ht 177.8 cm; Wt 125.3 kg
[~2023-11-26 17:27] MED LIST changes: +AMBI10TA PO; +DULO30CA9 PO; +MULT-40 PO
[2023-11-26 18:11] LABS: VENOUS BASE EXCESS -5.1 (-2.0-2.0); VENOUS HCO3 19.2 MMOL/L (23.0-27.0); VENOUS O2 SATURATION 68.8 % (60.0-80.0); VENOUS PARTIAL PRESSURE CO2 32.3 mmHg (38.0-50.0); VENOUS PARTIAL PRESSURE O2 37.8 mmHg (30.0-50.0); VENOUS PH 7.391 UNITS (7.330-7.430); VENOUS STANDARD HCO3 19.8 MMOL/L; VENOUS TOTAL CO2 20.1 MMOL/L (24.0-28.0)
[2023-11-26 18:18] LABS: HEMATOCRIT 22.3 % (36.0-47.0); HEMOGLOBIN 7.3 g/dl (12.0-15.5); MEAN CORPUSCULAR HEMOGLOBIN 33.3 pg (27.0-33.0); MEAN CORPUSCULAR HGB CONC 32.7 g/dl (32.0-36.5); MEAN CORPUSCULAR VOLUME 101.8 fl (80.0-96.0); RED BLOOD COUNT 2.19 10^6/uL (4.00-5.40); WHITE BLOOD COUNT 21.6 10^3/uL (4.0-10.0)
[2023-11-26 18:29] LABS: INR 1.92; PARTIAL THROMBOPLASTIN TIME 38.9 SECONDS (24.8-34.2); PROTHROMBIN TIME 21.3 SECONDS (12.5-14.5)
[2023-11-26 18:38] LABS: PLATELET COUNT, AUTOMATED 29 10^3/uL (150-450)
[2023-11-26 18:40] LABS: EOSINOPHILS 1 % (0-3); LYMPHOCYTES 5 % (16-44); METAMYELOCYTES 4 % (0-0); MONOCYTES 10 % (0-5); MYELOCYTES 1 % (0-0); NEUTROPHILS 79 % (28-66); PLATELET ESTIMATE MARKED DECREASE (NORMAL)
[2023-11-26 18:50] LABS: ETHYL ALCOHOL (ETHANOL) < 0.003 % (0.000-0.010)
[2023-11-26 18:52] LABS: ALBUMIN 1.3 G/DL (3.2-5.2); ALKALINE PHOSPHATASE 119 U/L (46-116); ALT/SGPT 15 U/L (7.0-40); AST/SGOT 112 U/L (<34); BILIRUBIN,DIRECT 4.2 MG/DL (<0.4); BILIRUBIN,TOTAL 5.7 MG/DL (0.3-1.2); BLOOD UREA NITROGEN 61 MG/DL (9-23); CALCIUM LEVEL 7.8 MG/DL (8.5-10.1); CARBON DIOXIDE LEVEL 19 MMOL/L (20-31); CHLORIDE LEVEL 97 MMOL/L (98-107); CK-MB VALUE MASS 1.8 NG/ML (<3.6); GLOMERULAR FILTRATION RATE 19.4 (>58); GLUCOSE, FASTING 69 MG/DL (60-100); POTASSIUM SERUM 4.4 MMOL/L (3.5-5.1); SODIUM LEVEL 125 MMOL/L (136-145); TOTAL PROTEIN 6.1 G/DL (5.7-8.2)
[2023-11-26 18:55] LABS: CPK CREATINE PHOSPHOKINASE 119 U/L (34-145); MB/CK RELATIVE INDEX 1.51 (< OR =4)
[2023-11-26] MEDS ORDERED: NS 1,000 ML IV SCH (19:50)
[2023-11-26 20:17] LABS: LIPASE 125 U/L (12-53)
[2023-11-26] MEDS: cefTRIAXone SOD 2 GM in D5W MINI-BAG PLUS 50 ML IV ONE (21:25)
[2023-11-26] MEDS: MORPHINE 2 MG/ML 1ML VIAL IV ONE (21:57)
[2023-11-26 22:02] LABS: AMPHETAMINES LEVEL URINE NEGATIVE (NEGATIVE); BARBITURATES URINE NEGATIVE (NEGATIVE); BENZODIAZEPINES URINE NEGATIVE (NEGATIVE); COCAINE METABOLITE URINE NEGATIVE (NEGATIVE); METHADONE URINE NEGATIVE (NEGATIVE); OPIATES URINE NEGATIVE (NEGATIVE); PHENCYCLIDINE URINE NEGATIVE (NEGATIVE)
[2023-11-26 22:07] LABS: CANNABINOIDS URINE POSITIVE (NEGATIVE)
[2023-11-27] VITALS (11 sets, daily range): BP systolic 106–109; BP diastolic 66–79; TEMP 98.1; O2SAT 95–97
[2023-11-27 00:54] LABS: VENOUS BASE EXCESS -4.8 (-2.0-2.0); VENOUS HCO3 18.9 MMOL/L (23.0-27.0); VENOUS O2 SATURATION 98.6 % (60.0-80.0); VENOUS PARTIAL PRESSURE CO2 29.2 mmHg (38.0-50.0); VENOUS PARTIAL PRESSURE O2 144.8 mmHg (30.0-50.0); VENOUS PH 7.429 UNITS (7.330-7.430); VENOUS STANDARD HCO3 20.5 MMOL/L; VENOUS TOTAL CO2 19.8 MMOL/L (24.0-28.0)
[2023-11-27] MEDS: NS 1,000 ML IV SCH (00:58)
[2023-11-27] MEDS: DOXYCYCLINE HYCLATE 100 MG in D5W MINI-BAG PLUS 100 ML IV SCH (00:58)
[2023-11-27] MEDS: PANTOPRAZOLE 40MG VIAL IV SCH (01:06)
[2023-11-27] MEDS: NICOTINE 21MG/24HR 1 EA TRANSDERMAL TD SCH (03:46)
[2023-11-27] MEDS: CEFEPIME HCL 1 GM in D5W MINI-BAG PLUS 50 ML IV SCH (03:46)
[2023-11-27 06:41] LABS: HEMATOCRIT 22.4 % (36.0-47.0); HEMOGLOBIN 7.3 g/dl (12.0-15.5); MEAN CORPUSCULAR HEMOGLOBIN 33.2 pg (27.0-33.0); MEAN CORPUSCULAR HGB CONC 32.6 g/dl (32.0-36.5); MEAN CORPUSCULAR VOLUME 101.8 fl (80.0-96.0); WHITE BLOOD COUNT 17.2 10^3/uL (4.0-10.0)
[2023-11-27 07:03] LABS: PLATELET COUNT, AUTOMATED 25 10^3/uL (150-450)
[2023-11-27 07:06] LABS: ALBUMIN 1.2 G/DL (3.2-5.2); BILIRUBIN,TOTAL 5.6 MG/DL (0.3-1.2); CALCIUM LEVEL 7.5 MG/DL (8.5-10.1); CREATININE FOR GFR 2.63 MG/DL (0.55-1.30); GLOMERULAR FILTRATION RATE 20.8 (>58); MAGNESIUM LEVEL 2.1 MG/DL (1.8-2.4); POTASSIUM SERUM 4.2 MMOL/L (3.5-5.1); TOTAL PROTEIN 5.9 G/DL (5.7-8.2)
[2023-11-27 07:23] LABS: PROCALCITONIN 2.69 ng/ml
[2023-11-27 08:55] LABS: BASO # 0.1 10^3/uL (0.0-0.2); BASO % 0.8 % (0.0-1.0); EOS # 0.2 10^3/uL (0.0-0.5); EOS % 0.9 % (0.0-3.0); LYMPH # 1.9 10^3/uL (1.5-5.0); LYMPH % 11.3 % (24.0-44.0); MONO # 2.2 10^3/uL (0.0-0.8); NEUTROPHILS # 11.2 10^3/uL (1.5-8.5); NEUTROPHILS % 65.3 % (36.0-66.0)
[2023-11-27] MEDS ORDERED: DIVA250T67 PO (09:05)
[2023-11-27] MEDS ORDERED: NARC1SPR (09:05)
[2023-11-27] MEDS ORDERED: QUET50TA4 PO (09:05)
[2023-11-27] MEDS ORDERED: DIVA500T94 PO (09:05)
[2023-11-27] MEDS ORDERED: HOME MED LIST COMPLETE! XX SCH (09:10)
[2023-11-27] MEDS: DOCUSATE SODIUM 100MG CAPSULE PO SCH (09:29)
[2023-11-27] MEDS: MULTIVITAMINS/MINERALS THERAP 1 TAB PO SCH (09:29)
[2023-11-27] MEDS: THIAMINE 100 MG TAB PO SCH (09:29)
[2023-11-27] MEDS: LORazepam 2 MG TAB PO PRN (09:29)
[2023-11-27] MEDS: FOLIC ACID 1MG TAB PO SCH (09:29)
[2023-11-27] MEDS: CEFEPIME HCL 2 GM in D5W MINI-BAG PLUS 50 ML IV SCH (13:55)
[2023-11-27] MEDS: SPIRONOLACTONE 25 MG TAB PO SCH (17:19)
[2023-11-27] MEDS: FUROSEMIDE 40MG/4ML VIAL IV SCH (17:19)
[2023-11-28] VITALS (10 sets, daily range): BP systolic 106–119; BP diastolic 47–70; TEMP 97.5–98.6; O2SAT 95–99
[2023-11-28 07:18] LABS: BASO % 0.3 % (0.0-1.0); EOS # 0.1 10^3/uL (0.0-0.5); EOS % 0.9 % (0.0-3.0); HEMATOCRIT 22.2 % (36.0-47.0); HEMOGLOBIN 7.1 g/dl (12.0-15.5); LYMPH # 1.8 10^3/uL (1.5-5.0); LYMPH % 12.3 % (24.0-44.0); MEAN CORPUSCULAR HEMOGLOBIN 34.5 pg (27.0-33.0); MEAN CORPUSCULAR VOLUME 107.8 fl (80.0-96.0); MONO # 2.1 10^3/uL (0.0-0.8); MONO % 14.4 % (2.0-8.0); NEUTROPHILS # 9.5 10^3/uL (1.5-8.5); NEUTROPHILS % 64.2 % (36.0-66.0); RED BLOOD COUNT 2.06 10^6/uL (4.00-5.40); WHITE BLOOD COUNT 14.8 10^3/uL (4.0-10.0)
[2023-11-28 07:19] LABS: PLATELET COUNT, AUTOMATED 19 10^3/uL (150-450)
[2023-11-28 07:42] LABS: ALBUMIN 1.1 G/DL (3.2-5.2); BILIRUBIN,DIRECT 3.6 MG/DL (<0.4); BILIRUBIN,TOTAL 4.5 MG/DL (0.3-1.2); CALCIUM LEVEL 7.7 MG/DL (8.5-10.1); CREATININE FOR GFR 2.17 MG/DL (0.55-1.30); POTASSIUM SERUM 4.5 MMOL/L (3.5-5.1); TOTAL PROTEIN 5.8 G/DL (5.7-8.2)
[2023-11-28] MEDS: ACETAMINOPHEN TAB 650MG DOSE (2X325MG) PO PRN (07:44)
[2023-11-28] MEDS ORDERED: GLUCAGON INJ 1MG VIAL SC PRN (08:20)
[2023-11-28] MEDS ORDERED: GLUCOSE 4 GM CHEW PO PRN (08:20)
[2023-11-28] MEDS ORDERED: DEXTROSE 50% 50ML SYRINGE IV PRN (08:20)
[2023-11-28] MEDS: LACTULOSE 20GM/30ML SYRUP UDC PO SCH (10:01)
[2023-11-28] MEDS: CEFEPIME HCL 1 GM in D5W MINI-BAG PLUS 50 ML IV SCH (14:52)
[2023-11-28] MEDS: DIVALPROEX 500 MG TAB PO SCH (22:08)
[2023-11-29] VITALS (12 sets, daily range): BP systolic 108–128; BP diastolic 48–70; TEMP 97.9–98.4; O2SAT 96–100
[2023-11-29 06:43] LABS: BASO # 0.1 10^3/uL (0.0-0.2); BASO % 0.5 % (0.0-1.0); EOS # 0.2 10^3/uL (0.0-0.5); EOS % 1.5 % (0.0-3.0); HEMATOCRIT 20.7 % (36.0-47.0); HEMOGLOBIN 6.4 g/dl (12.0-15.5); LYMPH % 13.5 % (24.0-44.0); MEAN CORPUSCULAR HEMOGLOBIN 32.8 pg (27.0-33.0); MEAN CORPUSCULAR HGB CONC 30.9 g/dl (32.0-36.5); MEAN CORPUSCULAR VOLUME 106.2 fl (80.0-96.0); MONO # 1.9 10^3/uL (0.0-0.8); MONO % 12.6 % (2.0-8.0); NEUTROPHILS # 9.6 10^3/uL (1.5-8.5); NEUTROPHILS % 65.2 % (36.0-66.0); RED BLOOD COUNT 1.95 10^6/uL (4.00-5.40); WHITE BLOOD COUNT 14.7 10^3/uL (4.0-10.0)
[2023-11-29 06:44] LABS: PLATELET COUNT, AUTOMATED 24 10^3/uL (150-450)
[2023-11-29 07:06] LABS: CALCIUM LEVEL 7.5 MG/DL (8.5-10.1); CREATININE FOR GFR 2.11 MG/DL (0.55-1.30); GLOMERULAR FILTRATION RATE 26.8 (>58); POTASSIUM SERUM 4.3 MMOL/L (3.5-5.1)
[2023-11-29] MEDS: DIVALPROEX 250MG TAB PO SCH (09:56)
[2023-11-29] MEDS ORDERED: ONDANSETRON 4MG 2ML VIAL IV PRN (14:40)
[2023-11-29] MEDS: MORPHINE 10MG/0.5ML ORAL CONCENTRATE SOLUTION U/D SL PRN (21:33)
[2023-11-29] MEDS: LORazepam 1 MG TAB PO PRN (21:34)
[2023-11-30] MEDS: VALPROIC ACID 250MG/5ML SOL ORAL SYRINGE PO SCH (10:00)
[2023-11-30] MEDS: VALPROIC ACID 500MG/10ML SOL ORAL SYRINGE PO SCH (20:44)
[2023-12-01] MEDS ORDERED: SCOPOLAMINE 1MG TRANSDERMAL PATCH TOP SCH (07:45)
[2023-12-01] MEDS: SCOPOLAMINE 1MG TRANSDERMAL PATCH TOP SCH (07:59)
[2023-12-01] MEDS ORDERED: GLYCOPYRROLATE INJ 0.2 MG/ML 2 ML VIAL IV PRN (13:00)
[2023-12-01] MEDS: GLYCOPYRROLATE INJ 0.2 MG/ML 2 ML VIAL SC PRN (14:44)
[2023-12-01] MEDS: MORPHINE 10MG/0.5ML ORAL CONCENTRATE SOLUTION U/D SL PRN (17:07)
[2023-12-02] MEDS: ACETAMINOPHEN 650MG SUPP PR PRN (06:29)
[2023-12-02] MEDS: MORPHINE 10MG/0.5ML ORAL CONCENTRATE SOLUTION U/D SL PRN (10:32)
== END 2023-12-02 21:24 | disposition expired | DRG 720 ==
LOC: M ED 17:27 → M ED INP 23:48 → M MSPAV 11-27 11:49
PROVIDERS: ADMIT Family Medicine; ATTEND Hospitalist
PROC: 30233N1 Transfusion of Nonautologous Red Blood Cells into Peripheral Vein, Percutaneous Approach (ICD-10-PCS; principal; 2023-11-29)
DX: A41.9 Sepsis, unspecified organism (principal); K76.7 Hepatorenal syndrome; G93.41 Metabolic encephalopathy; N17.9 Acute kidney failure, unspecified; I13.0 Hypertensive heart and chronic kidney disease with heart failure and stage 1 through stage 4 chronic kidney disease, or unspecified chronic kidney disease; E87.3 Alkalosis; I85.10 Secondary esophageal varices without bleeding; E87.20 Acidosis, unspecified; I50.32 Chronic diastolic (congestive) heart failure; J18.9 Pneumonia, unspecified organism; D69.59 Other secondary thrombocytopenia; E11.22 Type 2 diabetes mellitus with diabetic chronic kidney disease; K76.6 Portal hypertension; E83.51 Hypocalcemia; E87.1 Hypo-osmolality and hyponatremia; E87.70 Fluid overload, unspecified; G25.3 Myoclonus; K70.11 Alcoholic hepatitis with ascites; K70.31 Alcoholic cirrhosis of liver with ascites; K76.82 Hepatic encephalopathy; K70.30 Alcoholic cirrhosis of liver without ascites; Z66 Do not resuscitate; D53.9 Nutritional anemia, unspecified; E03.9 Hypothyroidism, unspecified; F10.288 Alcohol dependence with other alcohol-induced disorder; F17.210 Nicotine dependence, cigarettes, uncomplicated; F32.A Depression, unspecified; I25.10 Atherosclerotic heart disease of native coronary artery without angina pectoris; K21.9 Gastro-esophageal reflux disease without esophagitis; K25.9 Gastric ulcer, unspecified as acute or chronic, without hemorrhage or perforation; L03.116 Cellulitis of left lower limb; N18.9 Chronic kidney disease, unspecified; S82.61XA Displaced fracture of lateral malleolus of right fibula, initial encounter for closed fracture; E80.6 Other disorders of bilirubin metabolism; Z79.899 Other long term (current) drug therapy; Z88.1 Allergy status to other antibiotic agents; Z88.8 Allergy status to other drugs, medicaments and biological substances; W19.XXXA Unspecified fall, initial encounter; Y92.9 Unspecified place or not applicable; Y93.9 Activity, unspecified